=== PATIENT | male | born 1930 | race American Indian/Alaskan Native ===

== ENCOUNTER 2021-09-08 17:44 | Emergency (ER) | payer MEDICARE ==
[2021-09-08 18:00] VITALS: BP 129/78
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
== END 2021-09-08 19:04 | disposition home or self-care (01) ==
LOC: ED 17:44
DX: Z04.1 Encounter for examination and observation following transport accident (principal); V89.2XXA Person injured in unspecified motor-vehicle accident, traffic, initial encounter; Y93.89 Activity, other specified; Y92.89 Other specified places as the place of occurrence of the external cause; Y99.8 Other external cause status
CPT/HCPCS: 99282